=== PATIENT | female | born 1970 | race Two or more races ===

== ENCOUNTER 2024-02-06 15:29 | Emergency (ER) | payer OTHER ==
[~2024-02-06] VITALS: Ht 152.4 cm; Wt 90.7 kg
[2024-02-06] MEDS ORDERED: KETOROLAC TROMETHAMINE 30 MG VIAL IM ONE (16:15)
== END 2024-02-06 18:54 | disposition home or self-care (01) ==
LOC: ER 15:30
DX: S09.8XXA Other specified injuries of head, initial encounter (principal); W19.XXXA Unspecified fall, initial encounter; Y93.I9 Activity, other involving external motion; Y92.89 Other specified places as the place of occurrence of the external cause; Y99.8 Other external cause status